=== PATIENT | male | born 2000 | race Two or more races ===

== ENCOUNTER 2025-02-03 18:03 | Emergency (ER) | payer OTHER ==
[~2025-02-03] VITALS: Ht 162.6 cm; Wt 67.5 kg
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
[2025-02-03] MEDS ORDERED: IBU600T PO (20:01)
[2025-02-03 21:10] VITALS: BP 123/79; PULSE 75; RESP 18; TEMP 97.8; O2SAT 98
== END 2025-02-03 21:36 | disposition home or self-care (01) ==
LOC: ER 18:03
DX: S00.83XA Contusion of other part of head, initial encounter (principal); Y08.89XA Assault by other specified means, initial encounter; Y93.89 Activity, other specified; Y92.89 Other specified places as the place of occurrence of the external cause; Y99.8 Other external cause status
CPT/HCPCS: 70140; 72040